=== PATIENT | female | born 1940 | race Caucasian/White ===

== ENCOUNTER 2021-12-31 13:32 | Emergency (ER) | payer OTHER ==
[2021-12-31 14:07] VITALS: BP 116/71; PULSE 89; TEMP 98.3; BMI 27.1
[2021-12-31] MEDS ORDERED: ACETAMINOPHEN 500 MG TABLET (FP) PO ONE (14:13)
[2021-12-31] MEDS ORDERED: ACETAMINOPHEN 500 MG TABLET (FP) ONE (14:54)
== END 2021-12-31 18:00 | disposition home or self-care (01) ==
LOC: JER 13:32
DX: S82.091A Other fracture of right patella, initial encounter for closed fracture (principal); W01.0XXA Fall on same level from slipping, tripping and stumbling without subsequent striking against object, initial encounter
CPT/HCPCS: 73562-TC-RT-FY; 73700-TC-RT; 99284-25

== ENCOUNTER 2024-01-21 16:28 | Emergency (ER) | payer OTHER ==
[2024-01-21 16:32] VITALS: BP 132/61; PULSE 90; RESP 18; TEMP 98.1; BMI 26.9
== END 2024-01-21 17:15 | disposition home or self-care (01) ==
LOC: JERFT 16:28
DX: L25.9 Unspecified contact dermatitis, unspecified cause (principal); R21 Rash and other nonspecific skin eruption; L29.9 Pruritus, unspecified
CPT/HCPCS: 99283-25